=== PATIENT | male | born 1960 | race Caucasian/White ===

== ENCOUNTER → 2018-08-10 | Outpatient (CLI) | payer BC ==
--- NOTE | 2018-08-10 13:36 | PCVCIMAG ---
APPROVED REPORT Indications Bruit Doppler Spectral Velocity Analysis PSV / EDVPSV / EDV ECA (R) 100 / 18 cm/sECA (L) 97 / 18 cm/s dICA (R) 51 / 18 cm/sdICA (L) 57 / 24 cm/s Gissel (R) 53 / 25 cm/smICA (L) 65 / 29 cm/s pICA (R) 70 / 25 cm/spICA (L) 79 / 36 cm/s Bulb (R) 51 / 17 cm/sBulb (L) 53 / 19 cm/s dCCA (R) 82 / 26 cm/sdCCA (L) 73 / 26 cm/s mCCA (R) 73 / 25 cm/smCCA (L) 92 / 28 cm/s Vert (R) 34 / 10 cm/sVert (L) 45 / 12 cm/s ICA/CCA 0.85ICA/CCA 1.08 Findings The right carotid bulb has no significant plaque. The right proximal internal carotid artery shows no significant stenosis. The right common carotid artery shows no significant stenosis. The right external carotid artery shows no significant stenosis. The left carotid bulb has mild-moderate calcified plaque. The left proximal internal carotid artery shows <40% stenosis. The left common carotid artery shows no significant stenosis. The left external carotid artery shows no significant stenosis. Conclusion 1. Right carotid artery without significant stenosis 2. Left internal carotid artery stenosis (<40%) 3. Antegrade vertebral flow
--- NOTE | 2018-08-10 14:24 | PCVCIMAG ---
APPROVED REPORT Study performed: 08/10/2018 13:35:24 Exam: Stress Echocardiogram Indication: Hyperlipidemia, strong family history CAD Patient Location: Echo lab Stress Nurse: Marybel Castro RN Status: routine Ht: 5 ft 7 in HR: 81 bpm BP: 110/80 mmHg Rhythm: NSR Medical History Medical History: Hyperlipidemia Exercise History: Physically active Procedure The patient underwent an Exercise Stress Test using the Hema Protocol. Blood pressure, heart rate, and EKG were monitored. An Echocardiogram was performed by biotechnician in four stages in quad fashion. At peak stress, four selected images were obtained and placed side by side with resting images for comparison. Stress Test Details Stress Test: Exercise stress testing was performed using a Hema protocol. HR Resting HR: 81 bpmMax Heart Rate (APMHR): 162 bpm Max HR Achieved: 166 bpmTarget HR (85% APMHR): 137 bpm % of APMHR: 102 HR response to stress: Normal HR response to stress BP Resting BP: 110/80 mmHg Max BP: 160/82 mmHg Recovery BP: 128/80 mmHg ECG Resting ECG: Sinus Rhythm Stress ECG: Sinus Rhythm Recovery ECG: Sinus Rhythm Clinical Reason for Termination: Maximal effort Exercise duration: 10 min sec Highest Stage Achieved: Stage 4: 4.2 mph at 16% grade. Exercise capacity: 13.40 METs Overall Exercise Capacity for Age: Good Pre-Stress Echo The resting Echocardiogram showed normal left ventricular contractility with an estimated Ejection Fraction of about 55-60%. Normal wall motion in all segments on baseline images. Post-Stress Echo The stress Echocardiogram showed normal left ventricular contractility with an estimated Ejection Fraction of about 60-65%. Normal augmentation of wall motion in all segments on post stress images. Clinical No clinical or ECG evidence for ischemia. Conclusion Clinical Response: Non-ischemic Exercise Capacity: Average Stress ECG Response: Non-ischemic Stress Echo Images: Non-ischemic The left ventricle is normal in size and wall thickness in both the rest and stress images. Other Information Study Quality: Good <Conclusion> The left ventricle is normal in size and wall thickness in both the rest and stress images.
== END | disposition home or self-care (01) ==
LOC: PCVCIMAG 13:13
PROVIDERS: ATTEND Internal Medicine Cardiovascular Disease
DX: I65.22 Occlusion and stenosis of left carotid artery (principal); R09.89 Other specified symptoms and signs involving the circulatory and respiratory systems; E78.5 Hyperlipidemia, unspecified; R94.31 Abnormal electrocardiogram [ECG] [EKG]; R53.83 Other fatigue; E05.00 Thyrotoxicosis with diffuse goiter without thyrotoxic crisis or storm; R07.9 Chest pain, unspecified
CPT/HCPCS: 93325; 93351; 93880